=== PATIENT | male | born 1955 | race Asian ===

== ENCOUNTER 2022-03-22 16:47 | Emergency (ER) | payer OTHER ==
[2022-03-22 17:11] VITALS: BP 118/62; PULSE 69; RESP 17; TEMP 97.9; BMI 23.9
[2022-03-22] MEDS ORDERED: LIDOCAINE 5% TOPICAL PATCH TP ONE (17:41)
[2022-03-22] MEDS ORDERED: ACETAMINOPHEN 325 MG TABLET (FP) PO ONE (17:54)
[2022-03-22] MEDS ORDERED: LIDOCAINE 5% TOPICAL PATCH ONE (17:59)
[2022-03-22] MEDS ORDERED: ACETAMINOPHEN 325 MG TABLET (FP) ONE (17:59)
[2022-03-23] MEDS ORDERED: LIDOCAINE PATCH REMOVAL MC SCH (06:00)
== END 2022-03-22 18:27 | disposition home or self-care (01) ==
LOC: JERFT 16:47
DX: M25.552 Pain in left hip (principal)
CPT/HCPCS: 72170-TC-FY; 73502-TC-LT-FY; 99284-25